=== PATIENT | male | born 1965 | race Caucasian/White ===

== ENCOUNTER 2018-01-06 12:54 | Emergency (ER) | payer MEDICAID ==
[~2018-01-06] VITALS: Ht 188 cm; Wt 145.1 kg
[2018-01-06 16:47] VITALS: BP 143/104
[2018-01-06] MEDS ORDERED: PROMETHAZINE HCL 25 MG/ML 1ML IM ONE (17:00)
[2018-01-06] MEDS ORDERED: MEPERIDINE HCL (50 MG/ML) 1 ML VIAL IM ONE (17:00)
== END 2018-01-06 17:34 | disposition home or self-care (01) ==
LOC: ER 12:54
DX: M16.0 Bilateral primary osteoarthritis of hip (principal); M54.5 Low back pain; G89.29 Other chronic pain; F17.210 Nicotine dependence, cigarettes, uncomplicated; Z90.49 Acquired absence of other specified parts of digestive tract
CPT/HCPCS: 73502; 96372; 99283; J2175; J2550

== ENCOUNTER 2018-04-02 18:55 | Emergency (ER) | payer MEDICAID ==
[~2018-04-02] VITALS: Ht 188 cm; Wt 144.2 kg
[2018-04-02 19:26] VITALS: BP 172/83
[2018-04-02] MEDS ORDERED: MEPERIDINE HCL (50 MG/ML) 1 ML VIAL IM ONE (20:30)
[2018-04-02] MEDS ORDERED: ONDANSETRON ODT 4 MG TAB PO ONE (20:30)
[2018-04-02] MEDS ORDERED: methylPREDNISolone SOD SUCC 125 MG/2 ML VL IM ONE (20:30)
== END 2018-04-02 22:53 | disposition home or self-care (01) ==
LOC: ER 18:55
DX: M87.852 Other osteonecrosis, left femur (principal); M87.851 Other osteonecrosis, right femur; M19.90 Unspecified osteoarthritis, unspecified site; F17.210 Nicotine dependence, cigarettes, uncomplicated; Z90.49 Acquired absence of other specified parts of digestive tract
CPT/HCPCS: 96372; 99283; J2175; J2930; Q0162

== ENCOUNTER 2018-04-16 19:45 | Emergency (ER) | payer MEDICAID ==
[~2018-04-16] VITALS: Ht 188 cm; Wt 145.1 kg
[2018-04-16] MEDS ORDERED: MEPERIDINE HCL (50 MG/ML) 1 ML VIAL IM ONE (22:00)
[2018-04-16] MEDS ORDERED: ONDANSETRON ODT 4 MG TAB PO ONE (22:00)
[2018-04-16 22:10] VITALS: BP 154/81
== END 2018-04-16 22:39 | disposition home or self-care (01) ==
LOC: ER 19:50
DX: M87.88 Other osteonecrosis, other site (principal); M19.90 Unspecified osteoarthritis, unspecified site; F17.210 Nicotine dependence, cigarettes, uncomplicated
CPT/HCPCS: 96372; 99283; J2175; Q0162